=== PATIENT | male | born 1975 | race Caucasian/White ===

== ENCOUNTER 2020-12-28 09:47 | Emergency (ER) | payer OTHER ==
[~2020-12-28] VITALS: Ht 165.1 cm; Wt 65.4 kg
[2020-12-28 09:54] VITALS: BP 118/72
--- NOTE | 2020-12-28 10:59 | PHYS DOC ---
Past History Past Medical History: No Pertinent History (LILLIE MORRISON APRN) Past Surgical History: No Surgical History (LILLIE MORRISON APRN) Alcohol Use: None (LILLIE MORRISON APRN) General Adult EDM: Chief Complaint: LOWER EXT PAIN HPI: HPI: Patient is a 45-year-old male that presents today with right leg pain. Patient states that the pain started about 10 days ago and is progressively gotten worse he has 2 areas that are painful 1 in the posterior thigh area and in the posterior lower leg. Patient states he has had 2 very long flights in the last 10 days going to and from [employer] and patient is concerned with the pain and with the long flights that he has a blood clot in his leg. 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 Patient denies swelling in the leg, redness, chest pain, shortness of air, or fever or chills (LILLIE MORRISON APRN) Review of Systems: Review of Systems: Constitutional: Denies fever or chills Eyes: Denies change in visual acuity HENT: Denies nasal congestion or sore throat Respiratory: Denies cough or shortness of breath Cardiovascular: Denies chest pain or edema GI: Denies abdominal pain, nausea, vomiting, bloody stools or diarrhea : Denies dysuria Musculoskeletal: Right leg pain Integument: Denies rash Neurologic: Denies headache, focal weakness or sensory changes Endocrine: Denies polyuria or polydipsia Lymphatic: Denies swollen glands Psychiatric: Denies depression or anxiety (LILLIE MORRISON APRN) Allergies: Allergies: Allergies Coded Allergies Type Severity Reaction Last Updated Verified No Known Drug Allergies 12/28/20 No (LILLIE MORRISON APRN) Physical Exam: PE: Constitutional: Well developed, well nourished, no acute distress, non-toxic appearance. [] HENT: Normocephalic, atraumatic, bilateral external ears normal, oropharynx moist, no oral exudates, nose normal. [] Eyes: PERRLA, EOMI, conjunctiva normal, no discharge. [] Neck: Normal range of motion, no tenderness, supple, no stridor. [] Cardiovascular:Heart rate regular rhythm, no murmur [] Lungs & Thorax: Bilateral breath sounds clear to auscultation [] Abdomen: Bowel sounds normal, soft, no tenderness, no masses, no pulsatile masses. [] Skin: Warm, dry, no erythema, no rash. [] Back: No tenderness, no CVA tenderness. [] Extremities: Right leg no swelling noted no redness noted, dorsalis pedis and posterior tibial pulses 2+, sensation distal to the pain is intact, patient does not have a trigger point in his calf muscle, with tenderness with palpation noted in the right lower leg, right upper leg tenderness noted in the posterior area no trigger points noted Neurologic: Alert and oriented X 3, normal motor function, normal sensory function, no focal deficits noted. [] Psychologic: Affect normal, judgement normal, mood normal. [] (LILLIE MORRISON APRN) Current Patient Data: Labs: Laboratory Tests Test 12/28/20 10:45 White Blood Count 4.6 x10^3/uL Red Blood Count 4.74 x10^6/uL Hemoglobin 14.2 g/dL Hematocrit 43.1 % Mean Corpuscular Volume 91 fL Mean Corpuscular Hemoglobin 30 pg Mean Corpuscular Hemoglobin Concent 33 g/dL Red Cell Distribution Width 13.0 % Platelet Count 130 x10^3/uL Neutrophils (%) (Auto) 58 % Lymphocytes (%) (Auto) 29 % Monocytes (%) (Auto) 11 % Eosinophils (%) (Auto) 1 % Basophils (%) (Auto) 1 % Neutrophils # (Auto) 2.6 x10^3uL Lymphocytes # (Auto) 1.3 x10^3/uL Monocytes # (Auto) 0.5 x10^3/uL Eosinophils # (Auto) 0.1 x10^3/uL Basophils # (Auto) 0.0 x10^3/uL Sodium Level 142 mmol/L Potassium Level 3.7 mmol/L Chloride Level 105 mmol/L Carbon Dioxide Level 29 mmol/L Anion Gap 8 Blood Urea Nitrogen 18 mg/dL Creatinine 1.0 mg/dL Estimated GFR (Cockcroft-Gault) 80.8 BUN/Creatinine Ratio 18 Glucose Level 116 mg/dL Calcium Level 8.5 mg/dL Total Bilirubin 0.7 mg/dL Aspartate Amino Transf (AST/SGOT) 19 U/L Alanine Aminotransferase (ALT/SGPT) 28 U/L Alkaline Phosphatase 47 U/L Total Protein 6.8 g/dL Albumin 3.8 g/dL Albumin/Globulin Ratio 1.3 Vital Signs: Vital Signs Date Time Temp Pulse Resp B/P (MAP) Pulse Ox O2 Delivery O2 Flow Rate FiO2 12/28/20 09:54 97.7 62 16 118/72 (87) 98 Room Air (LILLIE MORRISON APRN) EKG: EKG: [] (LILLIE MORRISON APRN) Radiology/Procedures: Radiology/Procedures: REASON: PAIN PROCEDURE: VENOUS LOWER EXTREMITY RIGHT Right Leg Venous Doppler Ultrasound, 12/28/2020 11:10 AM Indication: Right-sided pain Comparison: None available Procedure: Real-time grayscale, color flow color duplex Doppler and spectral analysis are obtained with and without compression in the area of the common femoral vein, superficial femoral vein - femoral vein junction, main femoral vein (superficial femoral vein) and popliteal vein. Veins of the proximal calf are also imaged. Findings: There is normal duplex flow, color flow and compressibility of all visualized vein segments. No evidence of deep venous thrombus is present. Impression: Negative venous Doppler of right lower extremity Electronically signed by: Jany Greene MD (12/28/2020 11:38 AM) [facility][] (LILLIE MORRISON ELECTROLYSIST) Heart Score: C/O Chest Pain: N/A Risk Factors: Risk Factors: DM, Current or recent (<one month) smoker, HTN, HLP, family history of CAD, obesity. Risk Scores: Score 0 - 3: 2.5% MACE over next 6 weeks - Discharge Home Score 4 - 6: 20.3% MACE over next 6 weeks - Admit for Clinical Observation Score 7 - 10: 72.7% MACE over next 6 weeks - Early Invasive Strategies (LILLIE MORRISON ELECTROLYSIST) Course & Med Decision Making: Course & Med Decision Making Pertinent Labs and Imaging studies reviewed. (See chart for details) Reviewed labs and radiological studies with patient. Patient is agreeable with going home and following with primary care physician. Follow-up to the emergency department for increased chest pain or shortness of air (LILLIE MORRISON ELECTROLYSIST) Dragon Disclaimer: Dragon Disclaimer: This electronic medical record was generated, in whole or in part, using a voice recognition dictation system. (LILLIE MORRISON APRN) Attending Co-Sign The patient was seen and interviewed as well as examined at the bedside. The chart was reviewed. The case was discussed. Agree with the plan of care. (АЛЕКСАНДР ANDERSON DO) Departure Departure: Impression: Primary Impression: Muscle strain of left lower extremity Qualified Codes: S86.912A - Strain of unspecified muscle(s) and tendon(s) at lower leg level, left leg, initial encounter Disposition: HOME / SELF CARE / HOMELESS Condition: STABLE Referrals: PCP,NO (PCP) Patient Instructions: Muscle Strain Additional Instructions: Tylenol and/or ibuprofen as needed for pain May try massage therapy for muscle strain and trigger points Return to the emergency department for increased chest pain, increased swelling or tenderness in your left leg, or any shortness of air LILLIE MORRISON APRN Dec 28, 2020 10:59 АЛЕКСАНДР ANDERSON DO Dec 29, 2020 07:21
[2020-12-28 11:04] LABS: BASO % 1 % (0-3); EOS # 0.1 x10^3/uL (0.0-0.7); EOS % 1 % (0-3); HEMATOCRIT 43.1 % (39.0-53.0); HEMOGLOBIN 14.2 g/dL (13.0-17.5); LYMPH # 1.3 x10^3/uL (1.0-4.8); LYMPH % 29 % (24-48); MEAN CORPUSCULAR HEMOGLOBIN 30 pg (25-35); MEAN CORPUSCULAR HGB CONC 33 g/dL (31-37); MEAN CORPUSCULAR VOLUME 91 fL (79-100); MONO # 0.5 x10^3/uL (0.0-1.1); MONO % 11 % (0-9); NEUT # 2.6 x10^3uL (1.8-7.7); NEUT % 58 % (31-73); PLATELET COUNT 130 x10^3/uL (140-400); RED BLOOD COUNT 4.74 x10^6/uL (4.30-5.70); WHITE BLOOD COUNT 4.6 x10^3/uL (4.0-11.0)
[2020-12-28 11:13] LABS: CALCIUM 8.5 mg/dL (8.5-10.1); GFR 80.8; POTASSIUM 3.7 mmol/L (3.5-5.1)
[2020-12-28 11:20] LABS: ALBUMIN 3.8 g/dL (3.4-5.0); ALBUMIN/GLOBULIN RATIO 1.3 (1.0-1.7); TOTAL BILIRUBIN 0.7 mg/dL (0.2-1.0); TOTAL PROTEIN 6.8 g/dL (6.4-8.2)
--- NOTE | 2020-12-28 11:40 | RAD ---
Right Leg Venous Doppler Ultrasound, 12/28/2020 11:10 AM Indication: Right-sided pain Comparison: None available Procedure: Real-time grayscale, color flow color duplex Doppler and spectral analysis are obtained w ith and without compression in the area of the common femoral vein, superficial femoral vein - femora l vein junction, main femoral vein (superficial femoral vein) and popliteal vein. Veins of the proxim al calf are also imaged. Findings: There is normal duplex flow, color flow and compressibility of all visualized vein segment s. No evidence of deep venous thrombus is present. Impression: Negative venous Doppler of right lower extremity Electronically signed by: Jany Greene MD (12/28/2020 11:38 AM) [facility]
== END 2020-12-28 11:58 | disposition home or self-care (01) ==
LOC: ER 09:47
DX: S86.912A Strain of unspecified muscle(s) and tendon(s) at lower leg level, left leg, initial encounter (principal); X50.1XXA Overexertion from prolonged static or awkward postures, initial encounter; Y93.89 Activity, other specified; Y92.813 Airplane as the place of occurrence of the external cause; Y99.8 Other external cause status
CPT/HCPCS: 36415; 80053; 85025; 93971; 99284-25